=== PATIENT | male | born 1955 | race Caucasian/White ===

== ENCOUNTER 2019-01-24 10:55 | Emergency (ER) | payer SELFPAY ==
[2019-01-24 11:33] LABS: Bilirubin Negative (Negative); Blood, Urine Small (Negative); Clarity Clear (Clear); Glucose, Urine (Dipstick) 250 mg/dL (Negative); Leukocyte Negative (Negative); Nitrite Negative (Negative); Protein, Urine (Dipstick) Negative (Neg-Trace); Urobilinogen 0.2 mg/dL (0.2-1.0)
[2019-01-24 11:41] LABS: Bacteria/HPF Rare-Few HPF (None Seen); Squamous Epithelial 0-3 HPF (0-3); WBC/HPF 0-3 HPF (0-3)
== END 2019-01-24 13:35 | disposition home or self-care (01) ==
LOC: MADERS 10:55
DX: R33.9 Retention of urine, unspecified (principal); E11.9 Type 2 diabetes mellitus without complications; I10 Essential (primary) hypertension
CPT/HCPCS: 51702; 81003; 81015

== ENCOUNTER 2019-12-30 10:16 | Emergency (ER) | payer OTHER, SELFPAY | END 2019-12-30 11:03 | disposition home or self-care (01) | LOC: MADERS 10:16 | DX: S83.421A Sprain of lateral collateral ligament of right knee, initial encounter (principal); E11.9 Type 2 diabetes mellitus without complications; I10 Essential (primary) hypertension; X58.XXXA Exposure to other specified factors, initial encounter | CPT/HCPCS: 99283 ==

== ENCOUNTER 2020-01-11 19:42 | Emergency (ER) | payer SELFPAY ==
[~2020-01-11 19:42] MED LIST: Sterile Water Irrigation 1,000 ML BOT ONE
== END 2020-01-11 20:45 | disposition home or self-care (01) ==
LOC: MADERS 19:42
DX: T83.091A Other mechanical complication of indwelling urethral catheter, initial encounter (principal); E11.9 Type 2 diabetes mellitus without complications; I10 Essential (primary) hypertension
CPT/HCPCS: 99283; A4217

== ENCOUNTER 2020-03-08 07:09 | Emergency (ER) | payer OTHER ==
[2020-03-08] MEDS ORDERED: Sterile Water Irrigation 250 ML BOT ONE (08:05)
[2020-03-08 08:44] LABS: Bilirubin Negative (Negative); Blood, Urine Large (Negative); Clarity Turbid (Clear); Glucose, Urine (Dipstick) Negative (Negative); Leukocyte Large (Negative); Nitrite Positive (Negative); Protein, Urine (Dipstick) 100 mg/dL (Neg-Trace); Urobilinogen 0.2 mg/dL (Less than 2)
[2020-03-08 08:45] LABS: Bacteria/HPF 1+ HPF (None Seen); RBC/HPF 0-3 HPF (0-3); Squamous Epithelial 0-3 HPF (0-3); WBC/HPF Greater Than 50 HPF (0-3)
== END 2020-03-08 08:50 | disposition home or self-care (01) ==
LOC: MADERS 07:09
DX: T83.091A Other mechanical complication of indwelling urethral catheter, initial encounter (principal); N39.0 Urinary tract infection, site not specified; E11.9 Type 2 diabetes mellitus without complications; I10 Essential (primary) hypertension; Z79.84 Long term (current) use of oral hypoglycemic drugs; Z79.899 Other long term (current) drug therapy
CPT/HCPCS: 51702; 81003; 81015; 87077; 87086; 87186

== ENCOUNTER 2020-04-02 06:13 | Emergency (ER) | payer OTHER ==
[2020-04-02 07:03] LABS: #Basophils 0.2 thou/uL (0.0-0.2); #Eosinphils 0.3 thou/uL (0.0-0.7); #Lymphocytes 2.1 thou/uL (1.20-3.40); #Neutrophils 8.5 thou/uL (1.40-6.50); %Basophils 1.3 % (0.0-1.0); %Eosinophils 2.2 % (0.0-10.0); %Lymphocytes 17.7 % (21.0-51.0); %Monocytes 8.1 % (0.0-10.0); %Neutrophils 70.8 % (42.0-75.0); Hemoglobin 9.8 g/dL (14.0-18.0); Mean Corpuscular HGB CONC 32.3 g/dL (32.0-36.0); Mean Corpuscular Hemoglobin 29.3 pg (27.0-31.0); Mean Corpuscular Volume 90.7 fL (78.0-98.0); Mean Platelet Volume 5.3 fL (7.4-10.4); Platelet Count 443 thou/uL (130-400); RBC Distribution Width 13.2 % (11.5-14.5); Red Blood Cell (RBC) Count 3.36 mill/uL (4.70-6.10)
[2020-04-02 07:07] LABS: Bilirubin Negative (Negative); Blood, Urine Trace (Negative); Clarity Cloudy (Clear); Glucose, Urine (Dipstick) Negative (Negative); Leukocyte Moderate (Negative); Nitrite Negative (Negative); Protein, Urine (Dipstick) 30 mg/dL (Neg-Trace)
[2020-04-02 07:15] LABS: ALT (SGPT) 11 U/L (8-55); AST (SGOT) 17 U/L (5-34); Albumin 3.6 g/dL (3.4-4.8); Alkaline Phosphatase 636 U/L (40-110); Anion Gap 18 mmol/L (10-20); BUN (Urea Nitrogen) 17 mg/dL (8.4-25.7); Bilirubin, Total 0.5 mg/dL (0.2-1.2); Calc. Creatinine Clearance 0 mL/min (70-130); Calcium 8.7 mg/dL (7.8-10.44); Carbon Dioxide 19 mmol/L (23-31); Chloride 105 mmol/L (98-107); Estimated GFR-MDRD 59; Glucose 171 mg/dL (80-115); Magnesium 1.8 mg/dL (1.6-2.6); Potassium 4.1 mmol/L (3.5-5.1); Protein, Total 6.6 g/dL (5.8-8.1); Sodium 138 mmol/L (136-145)
[2020-04-02 07:18] LABS: Bacteria/HPF Rare-Few HPF (None Seen); RBC/HPF 0-3 HPF (0-3); Squamous Epithelial 0-3 HPF (0-3); WBC/HPF 21-50 HPF (0-3)
--- NOTE | 2020-04-02 13:24 | RAD ---
PORTABLE CHEST: History: Palpitations FINDINGS: Lungs appear clear. No infiltrate. Heart size upper normal. IMPRESSION: No acute process. POS: AGW
== END 2020-04-02 08:25 | disposition home or self-care (01) ==
LOC: MADERS 06:13
DX: T83.091A Other mechanical complication of indwelling urethral catheter, initial encounter (principal); N39.0 Urinary tract infection, site not specified; E78.5 Hyperlipidemia, unspecified; R00.2 Palpitations; E78.00 Pure hypercholesterolemia, unspecified; E11.9 Type 2 diabetes mellitus without complications; Z79.84 Long term (current) use of oral hypoglycemic drugs; Z79.899 Other long term (current) drug therapy
CPT/HCPCS: 36415; 51702; 71045; 80053; 81003; 81015; 83605; 83735; 83880; 84443; 84484; 85025; 87040; 87086; 93005

== ENCOUNTER 2020-08-03 18:18 | Emergency (ER) | payer OTHER, SELFPAY ==
[2020-08-03] MEDS ORDERED: Furosemide 40 MG/4 ML VIAL ONE (19:09)
[2020-08-03 19:21] LABS: #Basophils 0.1 thou/uL (0.0-0.2); #Eosinphils 0.2 thou/uL (0.0-0.7); #Lymphocytes 1.7 thou/uL (1.20-3.40); #Monocytes 0.7 thou/uL (0.11-0.59); #Neutrophils 6.7 thou/uL (1.40-6.50); %Basophils 0.9 % (0.0-1.0); %Eosinophils 2.5 % (0.0-10.0); %Lymphocytes 18.5 % (21.0-51.0); %Monocytes 7.4 % (0.0-10.0); %Neutrophils 70.9 % (42.0-75.0); Hemoglobin 8.6 g/dL (14.0-18.0); Mean Corpuscular HGB CONC 32.6 g/dL (32.0-36.0); Mean Corpuscular Hemoglobin 28.8 pg (27.0-31.0); Mean Corpuscular Volume 88.2 fL (78.0-98.0); Mean Platelet Volume 5.1 fL (7.4-10.4); Platelet Count 356 thou/uL (130-400); RBC Distribution Width 15.7 % (11.5-14.5); Red Blood Cell (RBC) Count 2.99 mill/uL (4.70-6.10); White Blood Cell (WBC) Count 9.5 thou/uL (4.8-10.8)
[2020-08-03 19:31] LABS: Bilirubin Negative (Negative); Blood, Urine Trace (Negative); Glucose, Urine (Dipstick) Negative (Negative); Ketone, Urine Negative (Negative); Leukocyte Small (Negative); Nitrite Positive (Negative); Protein, Urine (Dipstick) 30 mg/dL (Neg-Trace); Specific Gravity, Urine 1.025 (1.005-1.030); Urobilinogen 0.2 mg/dL (Less than 2); pH, Urine 5.5 (5.0-9.0)
[2020-08-03 19:32] LABS: Clarity Hazy (Clear)
[2020-08-03 19:34] LABS: ALT (SGPT) 11 U/L (8-55); AST (SGOT) 40 U/L (5-34); Albumin 3.6 g/dL (3.4-4.8); Alkaline Phosphatase 764 U/L (40-110); Anion Gap 19 mmol/L (10-20); BUN (Urea Nitrogen) 31 mg/dL (8.4-25.7); Bilirubin, Total 0.5 mg/dL (0.2-1.2); Calc. Creatinine Clearance 0 mL/min (70-130); Calcium 8.9 mg/dL (7.8-10.44); Carbon Dioxide 19 mmol/L (23-31); Chloride 106 mmol/L (98-107); Estimated GFR-MDRD 53; Globulin 3.3 g/dL (2.4-3.5); Glucose 143 mg/dL (80-115); Potassium 4.4 mmol/L (3.5-5.1); Protein, Total 6.9 g/dL (5.8-8.1); Sodium 140 mmol/L (136-145)
[2020-08-03 19:46] LABS: RBC/HPF 0-3 HPF (0-3); Squamous Epithelial 0-3 HPF (0-3); WBC/HPF 21-50 HPF (0-3)
[2020-08-03 19:47] LABS: Bacteria/HPF 1+ HPF (None Seen)
--- NOTE | 2020-08-03 20:03 | RAD ---
EXAM: CHEST ONE VIEW: 08/03/20 HISTORY: Pain, bilateral lower leg swelling. COMPARISON: 04/02/20. FINDINGS: There appears to be some thickening and increased density within several of the left ribs including t he third and fifth and sixth anterior left ribs and possibly the first, second and fourth right ribs. This raises the possibility of sclerotic bone metastasis. Heart size is within normal limits. No con fluent pneumonia, overt edema, or pleural effusion, although there is evidence for some bilateral vas cular congestion. IMPRESSION: 1. Evidence for bilateral vascular congestion without significant cardiomegaly or pleural effusi on or confluent pneumonia. 2. Evidence for some thickening and increased sclerosis within several ribs, this is nonspecific but raises the possibility of some type of sclerotic bony metastatic process. Recommend follow-up gautam ne scan in this regard on an nonemergent basis. POS: RRE
[2020-08-03] MEDS ORDERED: Sodium Chloride 0.9% 100 ML ONE (20:49)
[2020-08-03] MEDS ORDERED: cefTRIAXone\\ROCEPHIN 2 GM VIAL ONE (20:49)
[2020-08-03] MEDS ORDERED: traMADol HCl 50 MG TAB ONE (21:35)
== END 2020-08-03 21:45 | disposition home or self-care (01) ==
LOC: MADERS 18:18
DX: L03.115 Cellulitis of right lower limb (principal); R60.0 Localized edema; D64.9 Anemia, unspecified; E11.9 Type 2 diabetes mellitus without complications; E78.5 Hyperlipidemia, unspecified; E78.00 Pure hypercholesterolemia, unspecified; I10 Essential (primary) hypertension; Z79.84 Long term (current) use of oral hypoglycemic drugs; Z79.899 Other long term (current) drug therapy
CPT/HCPCS: 36415; 71045; 80053; 81003; 81015; 83880; 84443; 84484; 85025; 86140; 87077; 87086; 87186; 93005; 96365; 96375; J0696; J1940; J3490

== ENCOUNTER 2020-08-16 13:54 | Emergency (ER) | payer SELFPAY ==
--- NOTE | 2020-08-16 14:38 | RAD ---
Right tibia-fibula: 2 views INDICATIONS: Injury with pain COMPARISON: None FINDINGS: There is a fracture of the distal diaphysis of the tibia. Lateral view shows slight angulation. No si gnificant displacement. Degenerative change at the knee and ankle. IMPRESSION: Fracture mid shaft of tibia
[2020-08-16] MEDS ORDERED: HYDROcodone/Acetaminophen 5/325 mg Tablet ONE (15:12)
== END 2020-08-16 15:50 | disposition home or self-care (01) ==
LOC: MADERS 13:54
DX: S82.301A Unspecified fracture of lower end of right tibia, initial encounter for closed fracture (principal); E11.9 Type 2 diabetes mellitus without complications; E78.5 Hyperlipidemia, unspecified; E78.00 Pure hypercholesterolemia, unspecified; N40.0 Benign prostatic hyperplasia without lower urinary tract symptoms; I10 Essential (primary) hypertension; Z79.84 Long term (current) use of oral hypoglycemic drugs; Z79.899 Other long term (current) drug therapy; W18.30XA Fall on same level, unspecified, initial encounter
CPT/HCPCS: 29515

== ENCOUNTER 2020-08-18 06:30 | Emergency (ER) | payer SELFPAY ==
[2020-08-18 07:24] LABS: Bilirubin Negative (Negative); Blood, Urine Small (Negative); Clarity Slightly Cloudy (Clear); Glucose, Urine (Dipstick) Negative (Negative); Ketone, Urine 40 mg/dL (Negative); Leukocyte Trace (Negative); Nitrite Positive (Negative); Protein, Urine (Dipstick) 30 mg/dL (Neg-Trace); Urobilinogen 0.2 mg/dL (Less than 2); pH, Urine 5.5 (5.0-9.0)
[2020-08-18 07:30] LABS: Specific Gravity, Urine 1.021 (1.002-1.036)
[2020-08-18 07:36] LABS: RBC/HPF 0-3 HPF (0-3)
[2020-08-18 07:37] LABS: Bacteria/HPF 3+ HPF (None Seen); Squamous Epithelial 0-3 HPF (0-3)
[2020-08-18] MEDS ORDERED: cefTRIAXone\\ROCEPHIN 2 GM VIAL ONE (08:36)
[2020-08-18] MEDS ORDERED: Sodium Chloride 0.9% 1,000 ML ONE (08:37)
[2020-08-18] MEDS ORDERED: Sodium Chloride 0.9% 100 ML ONE (08:37)
[2020-08-18 08:40] LABS: #Basophils 0.1 thou/uL (0.0-0.2); #Eosinphils 0.1 thou/uL (0.0-0.7); #Lymphocytes 0.9 thou/uL (1.20-3.40); #Monocytes 0.7 thou/uL (0.11-0.59); #Neutrophils 7.8 thou/uL (1.40-6.50); %Basophils 0.9 % (0.0-1.0); %Eosinophils 1.2 % (0.0-10.0); %Lymphocytes 9.6 % (21.0-51.0); %Neutrophils 81.3 % (42.0-75.0); Hemoglobin 10.6 g/dL (14.0-18.0); Mean Corpuscular HGB CONC 31.1 g/dL (32.0-36.0); Mean Corpuscular Hemoglobin 28.2 pg (27.0-31.0); Mean Corpuscular Volume 90.6 fL (78.0-98.0); Mean Platelet Volume 5.5 fL (7.4-10.4); Platelet Count 333 thou/uL (130-400); RBC Distribution Width 15.5 % (11.5-14.5); Red Blood Cell (RBC) Count 3.76 mill/uL (4.70-6.10); White Blood Cell (WBC) Count 9.6 thou/uL (4.8-10.8)
[2020-08-18 08:57] LABS: ALT (SGPT) 9 U/L (8-55); AST (SGOT) 39 U/L (5-34); Albumin 3.9 g/dL (3.4-4.8); Alkaline Phosphatase 830 U/L (40-110); Anion Gap 25 mmol/L (10-20); BUN (Urea Nitrogen) 35 mg/dL (8.4-25.7); Bilirubin, Total 0.5 mg/dL (0.2-1.2); Calc. Creatinine Clearance 0 mL/min (70-130); Calcium 9.5 mg/dL (7.8-10.44); Carbon Dioxide 17 mmol/L (23-31); Chloride 98 mmol/L (98-107); Estimated GFR-MDRD 41; Globulin 3.6 g/dL (2.4-3.5); Glucose 177 mg/dL (80-115); Lipase 25 U/L (8-78); Potassium 4.2 mmol/L (3.5-5.1); Protein, Total 7.5 g/dL (5.8-8.1); Sodium 136 mmol/L (136-145)
[2020-08-18] MEDS ORDERED: Ciprofloxacin 500 MG TAB ONE (10:39)
== END 2020-08-18 12:50 | disposition short-term general hospital (02) ==
LOC: MADERS 06:30
DX: T83.091A Other mechanical complication of indwelling urethral catheter, initial encounter (principal); N39.0 Urinary tract infection, site not specified; R00.0 Tachycardia, unspecified; E11.9 Type 2 diabetes mellitus without complications; E78.5 Hyperlipidemia, unspecified; E78.00 Pure hypercholesterolemia, unspecified; I10 Essential (primary) hypertension; Z79.84 Long term (current) use of oral hypoglycemic drugs; Z79.899 Other long term (current) drug therapy
CPT/HCPCS: 51702; 80053; 81003; 81015; 83605; 83690; 85025; 87077; 87086; 87186; 96365; J0696; J3490; J7050

== ENCOUNTER 2021-10-04 15:37 | Outpatient (CLI) | payer MEDICARE ==
[2021-10-04 15:53] LABS: Bilirubin Negative (Negative); Blood, Urine Large (Negative); Clarity Cloudy (Clear); Glucose, Urine (Dipstick) 100 mg/dL (Negative); Ketone, Urine Negative (Negative); Leukocyte Small (Negative); Nitrite Negative (Negative); Protein, Urine (Dipstick) 100 mg/dL (Neg-Trace); Specific Gravity, Urine 1.025 (1.005-1.030); pH, Urine 5.5 (5.0-9.0)
[2021-10-04 16:17] LABS: RBC/HPF 21-50 HPF (0-3); Squamous Epithelial 0-3 HPF (0-3)
[2021-10-04 16:18] LABS: Bacteria/HPF 1+ HPF (None Seen); Follow-up Result - Urinalysis REPORT FAXED; Follow-up UA Comp? YES
== END 2021-10-04 15:38 | disposition home or self-care (01) ==
LOC: MADLAB 15:37
PROVIDERS: ATTEND Family Medicine
DX: N39.0 Urinary tract infection, site not specified (principal); N40.1 Benign prostatic hyperplasia with lower urinary tract symptoms; R33.8 Other retention of urine; Z46.6 Encounter for fitting and adjustment of urinary device
CPT/HCPCS: 81003; 81015; 87077; 87086; 87186

== ENCOUNTER 2022-05-10 04:29 | Emergency (ER) | payer MEDICARE ==
[2022-05-10] MEDS ORDERED: Morphine 4 MG/ML VIAL ONE (06:32)
[2022-05-10] MEDS ORDERED: Ondansetron ODT 4 MG TAB ONE (06:32)
== END 2022-05-10 08:15 | disposition home or self-care (01) ==
LOC: MADERS 04:29
DX: M89.58 Osteolysis, other site (principal); E11.9 Type 2 diabetes mellitus without complications; E78.5 Hyperlipidemia, unspecified; I10 Essential (primary) hypertension; Z79.899 Other long term (current) drug therapy
CPT/HCPCS: 72170; 96372; J2270; Q0162

== ENCOUNTER 2022-05-11 04:51 | Emergency (ER) | payer MEDICARE ==
[2022-05-11] MEDS ORDERED: Morphine 4 MG/ML VIAL ONE (06:15)
[2022-05-11] MEDS ORDERED: Ondansetron PF 4 MG/2 ML Vial ONE ×2 (06:15→06:16)
[2022-05-11] MEDS ORDERED: Dextrose 5 % And 0.9 % NaCl 1,000 ML ONE (06:16)
[2022-05-11] MEDS ORDERED: Lactated Ringer's 1,000 ML BAG ONE (07:47)
[2022-05-11 09:06] LABS: #Basophils 0.1 thou/uL (0.0-0.2); #Lymphocytes 0.4 thou/uL (1.20-3.40); #Neutrophils 8.6 thou/uL (1.40-6.50); %Basophils 0.6 % (0.0-1.0); %Eosinophils 0.2 % (0.0-10.0); %Lymphocytes 3.6 % (21.0-51.0); %Monocytes 10.2 % (0.0-10.0); %Neutrophils 85.3 % (42.0-75.0); Anisocytosis SLIGHT = 6-15 cells (100X) (0-5/hpf); Hemoglobin 8.4 g/dL (14.0-18.0); Hypochromia SLIGHT = 6-15 cells (100X) (0-5/hpf); MDiff Complete? YES; Mean Corpuscular HGB CONC 33.4 g/dL (32.0-36.0); Mean Corpuscular Hemoglobin 27.9 pg (27.0-31.0); Mean Corpuscular Volume 83.3 fL (78.0-98.0); Mean Platelet Volume 4.9 fL (7.4-10.4); Platelet Count 336 thou/uL (130-400); White Blood Cell (WBC) Count 10.1 thou/uL (4.8-10.8)
[2022-05-11 09:08] LABS: Phosphorus 3.6 mg/dL (2.3-4.7)
[2022-05-11] MEDS ORDERED: Thiamine HCl 200 MG/2 ML VIAL ONE (09:09)
[2022-05-11 09:11] LABS: ALT (SGPT) Less than 7 U/L (8-55); AST (SGOT) 266 U/L (5-34); Albumin 2.9 g/dL (3.4-4.8); Alkaline Phosphatase 1994 U/L (40-110); Anion Gap 16 mmol/L (10-20); BUN (Urea Nitrogen) 25 mg/dL (8.4-25.7); Bilirubin, Total 1.3 mg/dL (0.2-1.2); CK (CPK) 3842 U/L (30-200); Calc. Creatinine Clearance 0 mL/min (70-130); Calcium 8.4 mg/dL (7.8-10.44); Carbon Dioxide 17 mmol/L (23-31); Chloride 95 mmol/L (98-107); Estimated GFR 96; Globulin 3.1 g/dL (2.4-3.5); Glucose 93 mg/dL (80-115); Lipase 6 U/L (8-78); Magnesium 2.2 mg/dL (1.6-2.6); Sodium 123 mmol/L (136-145)
[2022-05-11 09:24] LABS: Bilirubin Negative (Negative); Blood, Urine Small (Negative); Clarity Hazy (Clear); Glucose, Urine (Dipstick) Negative (Negative); Ketone, Urine Negative (Negative); Leukocyte Trace (Negative); Nitrite Negative (Negative); Protein, Urine (Dipstick) 100 mg/dL (Neg-Trace); Specific Gravity, Urine 1.025 (1.005-1.030); Urobilinogen 0.2 mg/dL (Less than 2)
[2022-05-11 09:31] LABS: Bacteria/HPF 1+ HPF (None Seen); RBC/HPF 0-3 HPF (0-3); Squamous Epithelial 0-3 HPF (0-3)
[2022-05-11] MEDS ORDERED: HYDROcodone/Acetaminophen 5/325 mg Tablet ONE (09:44)
[2022-05-11] MEDS ORDERED: Lactated Ringer's 1,000 ML IV SCH (13:15)
== END 2022-05-11 11:00 | disposition short-term general hospital (02) ==
LOC: MADERS 04:51
DX: M62.82 Rhabdomyolysis (principal); D64.9 Anemia, unspecified; E86.0 Dehydration; E87.1 Hypo-osmolality and hyponatremia; I45.10 Unspecified right bundle-branch block; C79.82 Secondary malignant neoplasm of genital organs; R74.01 Elevation of levels of liver transaminase levels; I10 Essential (primary) hypertension; E11.9 Type 2 diabetes mellitus without complications; E78.5 Hyperlipidemia, unspecified; E78.00 Pure hypercholesterolemia, unspecified; Z79.899 Other long term (current) drug therapy
CPT/HCPCS: 36416; 71045; 80053; 81003; 81015; 82550; 83605; 83690; 83735; 83880; 84100; 84443; 84484; 85025; 93005; 94760; 96361; 96374; 96375; 36415-59; J2270; J2405; J3411; J7042; J7120